=== PATIENT | male | born 1990 | race Asian ===

== ENCOUNTER 2018-11-02 09:35 | Inpatient (IN) | payer OTHER ==
[2018-11-02] MEDS ORDERED: NS 0.9% 1000 ML*IV.FLUID IV ONE (09:59)
[2018-11-02] MEDS ORDERED: Ondansetron INJ* 2 MG/ML VIAL IV ONE (10:02)
--- NOTE | 2018-11-02 10:10 | ED ---
HPI Diabetic - HPI Summary HPI Summary: 27-year-old male presents with abdominal pain since yesterday. He states has not been able to keep anything down. He is a type I diabetic. He states he does have a history of DKA. He states that he started developing chest pain shortness of breath today. He states that he has continued to vomit. His blood glucose was 497 per EMS. he states felt feverish. He has never had this before. He denies any headache. no sinus congestion. he denies any sore throat. no urinary symptoms. has not taken anything for his symptoms. no other symptoms. - History Of Current Complaint Chief Complaint: EDDiabeticProb Time Seen by Provider: 11/02/18 09:41 - Allergies/Home Medications Allergies/Adverse Reactions: Allergies Allergy/AdvReac Type Severity Reaction Status Date / Time No Known Allergies Allergy Verified 11/02/18 10:09 Home Medications: Home Medications Insulin GLARGINE(*) [Lantus(*)] 16 units SUBCUT QAM 11/02/18 [History Confirmed 11/02/18] Insulin Lispro [Humalog Kwikpen] 0 unit SUBCUT PC 11/02/18 [History Confirmed ] PMH/Surg Hx/FS Hx/Imm Hx Endocrine/Hematology History: Reports: Hx Diabetes - type 1 Cardiovascular History: Denies: Hx Hypertension Infectious Disease History: No Infectious Disease History: Denies: Traveled Outside the [place] in Last 30 Days - Family History Known Family History: Negative: Diabetes - Social History Alcohol Use: Occasionally Substance Use Type: Reports: None Review of Systems Negative: Fever Positive: Shortness Of Breath, Cough Positive: Abdominal Pain, Vomiting, Nausea All Other Systems Reviewed And Are Negative: Yes Physical Exam Triage Information Reviewed: Yes Vital Signs On Initial Exam: Initial Vitals Resp 12 11/02/18 09:48 Vital Signs Reviewed: Yes Appearance: Positive: Ill-Appearing Skin: Positive: Warm, Dry Head/Face: Positive: Normal Head/Face Inspection Eyes: Positive: Normal, EOMI, RADHA, Conjunctiva Clear ENT: Positive: Pharyngeal erythema, TMs normal Respiratory/Lung Sounds: Positive: Clear to Auscultation, Breath Sounds Present Cardiovascular: Positive: Tachycardia Abdomen Description: Positive: Nontender, Soft Bowel Sounds: Positive: Present Musculoskeletal: Positive: Normal Neurological: Positive: Normal Psychiatric: Positive: Normal Diagnostics - Vital Signs Vital Signs Temp Pulse Resp BP Pulse Ox 11/02/18 10:00 136 19 99 11/02/18 09:49 98.4 F 132 40 148/89 98 11/02/18 09:48 12 - Laboratory Result Diagrams: 11/02/18 10:35 11/02/18 11:44 Lab Statement: Any lab studies that have been ordered have been reviewed, and results considered in the medical decision making process. - Radiology chest Radiology Interpretation Completed By: Radiologist Summary of Radiographic Findings: nad - EKG No standard instances Cardiac Rate: Tachycardia EKG Rhythm: Sinus Tachycardia Summary of EKG Findings: sinus tachycardia Diabetic Course/Dx - Course Course Of Treatment: 27-year-old male presents with nausea and vomiting for the past day. He states he felt feverish and chills. States over the bowel pain yesterday but that has gotten better. He denies chest pain or shortness breath. He denies any sore throat. He states he does have a history of DKA and is a type I diabetic. On first exam patient's respiratory rate is increased and has increased breathing. The patient is diaphoretic and tachycardic. Gave fluids. while waiting for labs ABG resulted in shows that patient is in DKA. Dr. Yadav who agrees to admit. - Diagnoses Differential Dx: Diabetic Ketoacidosis, Pneumonia, Sepsis Provider Diagnoses: DKA (diabetic ketoacidoses), Nausea and vomiting - Critical Care Time Critical Care Time: 30-74 min - 40mins Discharge - Sign-Out/Discharge Documenting (check all that apply): Patient Departure - Discharge Plan Condition: Guarded Disposition: ADMITTED TO [facility] - Billing Disposition and Condition Condition: GUARDED Disposition: Admitted to [facility]
[2018-11-02 10:46] LABS: Hematocrit 55 % (42-52); Hemoglobin 17.2 g/dl (14.0-18.0); Mean Corpuscular HGB Conc 32 g/dl (31-36); Mean Corpuscular Hemoglobin 30 pg (27-31); Mean Corpuscular Volume 95 fL (80-94); Mean Platelet Volume 8.2 fL (7.4-10.4); Platelet Count 281 10^3/ul (150-450); Red Blood Count 5.77 10^6/ul (4.00-5.40); Red Cell Distribution Width 15 % (10.5-15); White Blood Count 18.4 10^3/ul (3.5-10.8)
[2018-11-02 11:07] LABS: ALT 15 U/L (7-52); Albumin 4.4 g/dL (3.2-5.2); Albumin/Globulin Ratio 1.4 (1-3); Alkaline Phosphatase 121 U/L (34-104); BUN/Creatinine Ratio 14.7 (8-20); Blood Urea Nitrogen 19 mg/dL (6-24); C Reactive Protein 2.56 mg/L (<8.01); Calcium 8.9 mg/dL (8.6-10.3); Chloride 102 mmol/L (101-111); Creatine Kinase 74 U/L (10-223); EGFR Non-African American 67.3 (>60); Globulin 3.2 g/dL (2-4); Magnesium 1.7 mg/dL (1.9-2.7); Sodium 135 mmol/L (135-145); Total Protein 7.6 g/dL (6.4-8.9)
[2018-11-02 11:11] LABS: ABS Basophils 0.1 10^3/ul (0-0.2); ABS Eosinophils 0 10^3/ul (0-0.6); ABS Lymphocytes 1.7 10^3/ul (1.0-4.8); ABS Monocytes 0.8 10^3/ul (0-0.8); ABS Neutrophils 15.9 10^3/ul (1.5-7.7); ABS Nucleated RBC 0 10^3/ul; Eosinophil % 0.1 %; Lymphocyte % 9.1 %; Nucleated Red Blood Cells % 0
[2018-11-02 11:14] LABS: CO2 Carbon Dioxide < 7 mmol/L (22-32); Glucose 521 mg/dL (70-100)
--- NOTE | 2018-11-02 11:25 | HP ---
H&P (Free Text) History and Physical: [facility] History and Physical CC: Nausea and vomiting HPI: 27M with DM1 presents with nausea and vomiting. The patient states that over the past several days he has had a sore throat. He denies any fevers. During lunch yesterday he began to get nauseated and vomited. He denied any abdominal pain. He has been urinating more frequently and is very thirsty. He came to the ER and was found to be markedly acidotic. He had a bicarb of < 7 and his arterial pH is 7.02. The patient was given iv fluids and started on an insulin gtt. ROS - as per HPI PMHx - DM1 PSHx - denies All - nkda FamHx - denies SocHx - smoker, denies drugs or alcohol PE Vital Signs: Temp Pulse Resp BP Pulse Ox 98.4 F 131 45 139/88 99 11/02/18 09:49 11/02/18 11:00 11/02/18 11:00 11/02/18 10:19 11/02/18 11:00 Gen - Acutely ill heent - ncat, eomi, perrl neck - no jvd cv - s1/s2 tachy lungs -cta, no wheeze abd - soft, nt ext - no cce neuro - non-focal Labs Laboratory Results - last 24 hr 11/02/18 11/02/18 11/02/18 10:20 10:35 10:35 WBC 18.4 H RBC 5.77 H Hgb 17.2 Hct 55 H MCV 95 H MCH 30 MCHC 32 RDW 15 Plt Count 281 MPV 8.2 Neut % (Auto) 86.3 Lymph % (Auto) 9.1 [place] % (Auto) 4.2 Eos % (Auto) 0.1 Baso % (Auto) 0.3 Absolute Neuts (auto) 15.9 H Absolute Lymphs (auto) 1.7 Absolute Monos (auto) 0.8 Absolute Eos (auto) 0 Absolute Basos (auto) 0.1 Absolute Nucleated RBC 0 Nucleated RBC % 0 D-Dimer, Quantitative ABG pH 7.02 L* ABG pCO2 < 20 L ABG pO2 121 H ABG HCO3 4.7 L* ABG O2 Saturation 98.7 H ABG Base Excess -25.9 L Sodium 135 Potassium TNP Chloride 102 Carbon Dioxide < 7 L* Anion Gap Not Reportable BUN 19 Creatinine 1.29 H Est GFR ( Amer) 81.5 Est GFR (Non-Af Amer) 67.3 BUN/Creatinine Ratio 14.7 Glucose 521 H* Lactic Acid Calcium 8.9 Magnesium 1.7 L Total Bilirubin 0.40 AST TNP ALT 15 Alkaline Phosphatase 121 H Total Creatine Kinase 74 Troponin I 0.00 C-Reactive Protein 2.56 Total Protein 7.6 Albumin 4.4 Globulin 3.2 Albumin/Globulin Ratio 1.4 Lipase < 10 L Monoscreen Influenza A (Rapid) Influenza B (Rapid) Group A Strep Rapid 11/02/18 11/02/18 11/02/18 10:35 10:35 10:35 WBC RBC Hgb Hct MCV MCH MCHC RDW Plt Count MPV Neut % (Auto) Lymph % (Auto) [place] % (Auto) Eos % (Auto) Baso % (Auto) Absolute Neuts (auto) Absolute Lymphs (auto) Absolute Monos (auto) Absolute Eos (auto) Absolute Basos (auto) Absolute Nucleated RBC Nucleated RBC % D-Dimer, Quantitative < 200 ABG pH ABG pCO2 ABG pO2 ABG HCO3 ABG O2 Saturation ABG Base Excess Sodium Potassium Chloride Carbon Dioxide Anion Gap BUN Creatinine Est GFR ( Amer) Est GFR (Non-Af Amer) BUN/Creatinine Ratio Glucose Lactic Acid 2.6 H* Calcium Magnesium Total Bilirubin AST ALT Alkaline Phosphatase Total Creatine Kinase Troponin I C-Reactive Protein Total Protein Albumin Globulin Albumin/Globulin Ratio Lipase Monoscreen Negative Influenza A (Rapid) Influenza B (Rapid) Group A Strep Rapid 11/02/18 11/02/18 10:51 10:52 WBC RBC Hgb Hct MCV MCH MCHC RDW Plt Count MPV Neut % (Auto) Lymph % (Auto) [place] % (Auto) Eos % (Auto) Baso % (Auto) Absolute Neuts (auto) Absolute Lymphs (auto) Absolute Monos (auto) Absolute Eos (auto) Absolute Basos (auto) Absolute Nucleated RBC Nucleated RBC % D-Dimer, Quantitative ABG pH ABG pCO2 ABG pO2 ABG HCO3 ABG O2 Saturation ABG Base Excess Sodium Potassium Chloride Carbon Dioxide Anion Gap BUN Creatinine Est GFR ( Amer) Est GFR (Non-Af Amer) BUN/Creatinine Ratio Glucose Lactic Acid Calcium Magnesium Total Bilirubin AST ALT Alkaline Phosphatase Total Creatine Kinase Troponin I C-Reactive Protein Total Protein Albumin Globulin Albumin/Globulin Ratio Lipase Monoscreen Influenza A (Rapid) Negative Influenza B (Rapid) Negative Group A Strep Rapid Negative Imaging CXR 11/02 IMPRESSION: NO ACTIVE CARDIOPULMONARY DISEASE. Impression 27M with DM1 presents with DKA precipitated by viral URI Plan DKA - aggressive iv hydration - serial bmp - fs q1h - replete electrolytes - npo - insulin gtt - check a1c - gi/dvt ppx - full code Admit to ICU Critical Care Time: 50 mins
[2018-11-02] MEDS ORDERED: Morphine VIAL* 4 MG/ML VIAL (1 ml vial) IV PRN (11:42)
[2018-11-02] MEDS ORDERED: Ondansetron INJ* 2 MG/ML VIAL IV PRN (11:42)
[2018-11-02 11:45] LABS: Urine Appearance Clear; Urine Bacteria Absent (Absent); Urine Bilirubin Negative (Negative); Urine Blood 2+ (Negative); Urine Color Straw; Urine Glucose 3+(>=500 mg/dL) (Negative); Urine Ketones 2+ (Negative); Urine Nitrite Negative (Negative); Urine Protein 1+(30 mg/dL) (Negative); Urine Red Blood Cell Trace(0-2/hpf) (Absent); Urine Specific Gravity 1.024 (1.010-1.030); Urine Urobilinogen Negative (Negative); Urine White Blood Cell Absent (Absent)
[2018-11-02] MEDS ORDERED: Lactated Ringers 1000 ML Bag* 1,000 ML IV SCH ×2 (12:00→13:00)
[2018-11-02] MEDS ORDERED: Insulin IVPB 100 units/100 ml 100 UNITS/100 ML UNIT IVPB SCH (12:00)
[2018-11-02] MEDS: Enoxaparin(*) 40 MG/0.4 ML SYR SUBCUT SCH (12:20)
[2018-11-02] MEDS: Lactated Ringers 1000 ML Bag* 2,000 ML IV SCH ×2 (12:20→13:07)
[2018-11-02 15:05] LABS: BUN/Creatinine Ratio 14.4 (8-20); Blood Urea Nitrogen 16 mg/dL (6-24); Calcium 8.7 mg/dL (8.6-10.3); Chloride 106 mmol/L (101-111); EGFR Non-African American 80.1 (>60); Glucose 286 mg/dL (70-100); Magnesium 1.6 mg/dL (1.9-2.7); Sodium 133 mmol/L (135-145)
[2018-11-02 15:10] LABS: CO2 Carbon Dioxide < 7 mmol/L (22-32)
[2018-11-02 15:49] LABS: Potassium 5.2 mmol/L (3.5-5.0)
[2018-11-02] MEDS ORDERED: Magnesium Sulfate IV* 3 GM in NS 0.9% 100 ML* 100 ML IVPB ONE (16:00)
[2018-11-02] MEDS ORDERED: D5LR 1000 ML BAG* 1,000 ML IV SCH (16:00)
[2018-11-02 19:18] LABS: Chloride 107 mmol/L (101-111); Sodium 135 mmol/L (135-145)
[2018-11-02 19:21] LABS: CO2 Carbon Dioxide < 7 mmol/L (22-32)
[2018-11-02 20:27] LABS: BUN/Creatinine Ratio 11.6 (8-20); Calcium 8.5 mg/dL (8.6-10.3); EGFR Non-African American 95.8 (>60); Magnesium 2.2 mg/dL (1.9-2.7); Phosphorus 1.9 mg/dL (2.5-5.0); Potassium 4.5 mmol/L (3.5-5.0)
[2018-11-02] MEDS ORDERED: Sodium Phosphate INJ* 15 MMOLE in NS 0.9% 250 ML* 250 ML IVPB ONE (22:00)
[2018-11-03 01:59] LABS: ABS Basophils 0.1 10^3/ul (0-0.2); ABS Eosinophils 0 10^3/ul (0-0.6); ABS Lymphocytes 2.1 10^3/ul (1.0-4.8); ABS Monocytes 1.2 10^3/ul (0-0.8); ABS Neutrophils 10.2 10^3/ul (1.5-7.7); ABS Nucleated RBC 0 10^3/ul; Eosinophil % 0.1 %; Hematocrit 44 % (42-52); Hemoglobin 14.8 g/dl (14.0-18.0); Lymphocyte % 15.6 %; Mean Corpuscular HGB Conc 33 g/dl (31-36); Mean Corpuscular Hemoglobin 30 pg (27-31); Mean Corpuscular Volume 89 fL (80-94); Mean Platelet Volume 7.4 fL (7.4-10.4); Nucleated Red Blood Cells % 0; Platelet Count 216 10^3/ul (150-450); Red Blood Count 4.98 10^6/ul (4.00-5.40); Red Cell Distribution Width 14 % (10.5-15); White Blood Count 13.6 10^3/ul (3.5-10.8)
[2018-11-03 02:12] LABS: BUN/Creatinine Ratio 9.2 (8-20); Calcium 8.6 mg/dL (8.6-10.3); EGFR Non-African American 92.5 (>60); Magnesium 1.8 mg/dL (1.9-2.7); Phosphorus 1.9 mg/dL (2.5-5.0); Potassium 3.8 mmol/L (3.5-5.0)
[2018-11-03] MEDS ORDERED: Dextrose 50% Syringe 50 ML* 25 GM/50 ML SYRINGE IV PUSH PRN (02:28)
[2018-11-03] MEDS: Insulin GLARGINE(*) 1 UNITS UNIT SUBCUT SCH (02:41)
[2018-11-03] MEDS ORDERED: Magnesium Sulfate 1 GM IV* 1 GM/100 ML BAG IV ONE (03:16)
--- NOTE | 2018-11-03 08:20 | PN ---
Date of Service: 11/03/18 Critical Care Services: 27M with DM1 presents with DKA precipitated by viral URI 11/03: AG closed. Off insulin gtt. Given long acting insulin. Vital Signs: Temp Pulse Resp BP SpO2 FiO2 98.8 F 78 20 105/62 100 11/03/18 07:40 11/03/18 06:01 11/03/18 06:01 11/03/18 06:00 11/03/18 06:01 Physical Exam: Gen - nad heent - ncat, eomi, perrl neck - no jvd cv - s1/s2, no murmur lungs -cta, no wheeze abd - soft, nt ext - no cce neuro - non-focal Fluid Balance (Past 24 Hours): I= O= Net Intake & Output 11/01/18 11/02/18 11/03/18 11/04/18 06:59 06:59 06:59 06:59 Intake Total 6420.2 Output Total 2650 Balance 3770.2 Weight 82.559 kg Intake: IV Fluids 5806 D5W LR 1788 LR 1998 NS (0.9%) 20 IVPB 40 Sodium phosphate 40 Medicated IV 174.2 GEN - Magnesium 110 Insulin 64.2 Oral 400 Output: Urine 2650 Labs: Laboratory Results - last 24 hr 11/02/18 11/02/18 11/02/18 10:20 10:35 10:35 WBC 18.4 H RBC 5.77 H Hgb 17.2 Hct 55 H MCV 95 H MCH 30 MCHC 32 RDW 15 Plt Count 281 MPV 8.2 Neut % (Auto) 86.3 Lymph % (Auto) 9.1 [place] % (Auto) 4.2 Eos % (Auto) 0.1 Baso % (Auto) 0.3 Absolute Neuts (auto) 15.9 H Absolute Lymphs (auto) 1.7 Absolute Monos (auto) 0.8 Absolute Eos (auto) 0 Absolute Basos (auto) 0.1 Absolute Nucleated RBC 0 Nucleated RBC % 0 D-Dimer, Quantitative ABG pH 7.02 L* ABG pCO2 < 20 L ABG pO2 121 H ABG HCO3 4.7 L* ABG O2 Saturation 98.7 H ABG Base Excess -25.9 L Sodium 135 Potassium TNP Chloride 102 Carbon Dioxide < 7 L* Anion Gap Not Reportable BUN 19 Creatinine 1.29 H Est GFR ( Amer) 81.5 Est GFR (Non-Af Amer) 67.3 BUN/Creatinine Ratio 14.7 Glucose 521 H* POC Glucose (mg/dL) Hemoglobin A1c Lactic Acid Calcium 8.9 Phosphorus Magnesium 1.7 L Total Bilirubin 0.40 AST TNP ALT 15 Alkaline Phosphatase 121 H Total Creatine Kinase 74 Troponin I 0.00 C-Reactive Protein 2.56 Total Protein 7.6 Albumin 4.4 Globulin 3.2 Albumin/Globulin Ratio 1.4 Lipase < 10 L Urine Color Urine Appearance Urine pH Ur Specific [place] Urine Protein Urine Ketones Urine Blood Urine Nitrate Urine Bilirubin Urine Urobilinogen Ur Leukocyte Esterase Urine WBC (Auto) Urine RBC (Auto) Urine Bacteria Urine Glucose Monoscreen Influenza A (Rapid) Influenza B (Rapid) Group A Strep Rapid 11/02/18 11/02/18 11/02/18 10:35 10:35 10:35 WBC RBC Hgb Hct MCV MCH MCHC RDW Plt Count MPV Neut % (Auto) Lymph % (Auto) [place] % (Auto) Eos % (Auto) Baso % (Auto) Absolute Neuts (auto) Absolute Lymphs (auto) Absolute Monos (auto) Absolute Eos (auto) Absolute Basos (auto) Absolute Nucleated RBC Nucleated RBC % D-Dimer, Quantitative < 200 ABG pH ABG pCO2 ABG pO2 ABG HCO3 ABG O2 Saturation ABG Base Excess Sodium Potassium Chloride Carbon Dioxide Anion Gap BUN Creatinine Est GFR ( Amer) Est GFR (Non-Af Amer) BUN/Creatinine Ratio Glucose POC Glucose (mg/dL) Hemoglobin A1c Lactic Acid 2.6 H* Calcium Phosphorus Magnesium Total Bilirubin AST ALT Alkaline Phosphatase Total Creatine Kinase Troponin I C-Reactive Protein Total Protein Albumin Globulin Albumin/Globulin Ratio Lipase Urine Color Urine Appearance Urine pH Ur Specific [place] Urine Protein Urine Ketones Urine Blood Urine Nitrate Urine Bilirubin Urine Urobilinogen Ur Leukocyte Esterase Urine WBC (Auto) Urine RBC (Auto) Urine Bacteria Urine Glucose Monoscreen Negative Influenza A (Rapid) Influenza B (Rapid) Group A Strep Rapid 11/02/18 11/02/18 11/02/18 10:51 10:52 11:24 WBC RBC Hgb Hct MCV MCH MCHC RDW Plt Count MPV Neut % (Auto) Lymph % (Auto) [place] % (Auto) Eos % (Auto) Baso % (Auto) Absolute Neuts (auto) Absolute Lymphs (auto) Absolute Monos (auto) Absolute Eos (auto) Absolute Basos (auto) Absolute Nucleated RBC Nucleated RBC % D-Dimer, Quantitative ABG pH ABG pCO2 ABG pO2 ABG HCO3 ABG O2 Saturation ABG Base Excess Sodium Potassium Chloride Carbon Dioxide Anion Gap BUN Creatinine Est GFR ( Amer) Est GFR (Non-Af Amer) BUN/Creatinine Ratio Glucose POC Glucose (mg/dL) > 444 H* Hemoglobin A1c Lactic Acid Calcium Phosphorus Magnesium Total Bilirubin AST ALT Alkaline Phosphatase Total Creatine Kinase Troponin I C-Reactive Protein Total Protein Albumin Globulin Albumin/Globulin Ratio Lipase Urine Color Urine Appearance Urine pH Ur Specific [place] Urine Protein Urine Ketones Urine Blood Urine Nitrate Urine Bilirubin Urine Urobilinogen Ur Leukocyte Esterase Urine WBC (Auto) Urine RBC (Auto) Urine Bacteria Urine Glucose Monoscreen Influenza A (Rapid) Negative Influenza B (Rapid) Negative Group A Strep Rapid Negative 11/02/18 11/02/18 11/02/18 11:30 11:44 12:08 WBC RBC Hgb Hct MCV MCH MCHC RDW Plt Count MPV Neut % (Auto) Lymph % (Auto) [place] % (Auto) Eos % (Auto) Baso % (Auto) Absolute Neuts (auto) Absolute Lymphs (auto) Absolute Monos (auto) Absolute Eos (auto) Absolute Basos (auto) Absolute Nucleated RBC Nucleated RBC % D-Dimer, Quantitative ABG pH ABG pCO2 ABG pO2 ABG HCO3 ABG O2 Saturation ABG Base Excess Sodium Potassium TNP Chloride Carbon Dioxide Anion Gap BUN Creatinine Est GFR ( Amer) Est GFR (Non-Af Amer) BUN/Creatinine Ratio Glucose POC Glucose (mg/dL) Hemoglobin A1c Lactic Acid Calcium Phosphorus 4.9 Magnesium Total Bilirubin AST TNP ALT Alkaline Phosphatase Total Creatine Kinase Troponin I C-Reactive Protein Total Protein Albumin Globulin Albumin/Globulin Ratio Lipase Urine Color Straw Urine Appearance Clear Urine pH 5.0 Ur Specific [place] 1.024 Urine Protein 1+(30 mg/dl) A Urine Ketones 2+ A Urine Blood 2+ A Urine Nitrate Negative Urine Bilirubin Negative Urine Urobilinogen Negative Ur Leukocyte Esterase Negative Urine WBC (Auto) Absent Urine RBC (Auto) Trace(0-2/hpf) Urine Bacteria Absent Urine Glucose 3+(>=500 mg/dl) A Monoscreen Influenza A (Rapid) Influenza B (Rapid) Group A Strep Rapid 11/02/18 11/02/18 11/02/18 12:18 13:03 14:10 WBC RBC Hgb Hct MCV MCH MCHC RDW Plt Count MPV Neut % (Auto) Lymph % (Auto) [place] % (Auto) Eos % (Auto) Baso % (Auto) Absolute Neuts (auto) Absolute Lymphs (auto) Absolute Monos (auto) Absolute Eos (auto) Absolute Basos (auto) Absolute Nucleated RBC Nucleated RBC % D-Dimer, Quantitative ABG pH ABG pCO2 ABG pO2 ABG HCO3 ABG O2 Saturation ABG Base Excess Sodium Potassium Chloride Carbon Dioxide Anion Gap BUN Creatinine Est GFR ( Amer) Est GFR (Non-Af Amer) BUN/Creatinine Ratio Glucose POC Glucose (mg/dL) 345 H 367 H 309 H Hemoglobin A1c Lactic Acid Calcium Phosphorus Magnesium Total Bilirubin AST ALT Alkaline Phosphatase Total Creatine Kinase Troponin I C-Reactive Protein Total Protein Albumin Globulin Albumin/Globulin Ratio Lipase Urine Color Urine Appearance Urine pH Ur Specific [place] Urine Protein Urine Ketones Urine Blood Urine Nitrate Urine Bilirubin Urine Urobilinogen Ur Leukocyte Esterase Urine WBC (Auto) Urine RBC (Auto) Urine Bacteria Urine Glucose Monoscreen Influenza A (Rapid) Influenza B (Rapid) Group A Strep Rapid 11/02/18 11/02/18 11/02/18 14:18 15:10 15:25 WBC RBC Hgb Hct MCV MCH MCHC RDW Plt Count MPV Neut % (Auto) Lymph % (Auto) [place] % (Auto) Eos % (Auto) Baso % (Auto) Absolute Neuts (auto) Absolute Lymphs (auto) Absolute Monos (auto) Absolute Eos (auto) Absolute Basos (auto) Absolute Nucleated RBC Nucleated RBC % D-Dimer, Quantitative ABG pH ABG pCO2 ABG pO2 ABG HCO3 ABG O2 Saturation ABG Base Excess Sodium 133 L Potassium TNP Chloride 106 Carbon Dioxide < 7 L* Anion Gap Not Reportable BUN 16 Creatinine 1.11 Est GFR ( Amer) 96.9 Est GFR (Non-Af Amer) 80.1 BUN/Creatinine Ratio 14.4 Glucose 286 H POC Glucose (mg/dL) 225 H Hemoglobin A1c 10.8 H Lactic Acid Calcium 8.7 Phosphorus Magnesium 1.6 L Total Bilirubin AST ALT Alkaline Phosphatase Total Creatine Kinase Troponin I C-Reactive Protein Total Protein Albumin Globulin Albumin/Globulin Ratio Lipase Urine Color Urine Appearance Urine pH Ur Specific [place] Urine Protein Urine Ketones Urine Blood Urine Nitrate Urine Bilirubin Urine Urobilinogen Ur Leukocyte Esterase Urine WBC (Auto) Urine RBC (Auto) Urine Bacteria Urine Glucose Monoscreen Influenza A (Rapid) Influenza B (Rapid) Group A Strep Rapid 11/02/18 11/02/18 11/02/18 15:25 15:56 17:12 WBC RBC Hgb Hct MCV MCH MCHC RDW Plt Count MPV Neut % (Auto) Lymph % (Auto) [place] % (Auto) Eos % (Auto) Baso % (Auto) Absolute Neuts (auto) Absolute Lymphs (auto) Absolute Monos (auto) Absolute Eos (auto) Absolute Basos (auto) Absolute Nucleated RBC Nucleated RBC % D-Dimer, Quantitative ABG pH ABG pCO2 ABG pO2 ABG HCO3 ABG O2 Saturation ABG Base Excess Sodium 135 Potassium 5.2 H Chloride 107 Carbon Dioxide < 7 L* Anion Gap Not Reportable BUN Creatinine Est GFR ( Amer) Est GFR (Non-Af Amer) BUN/Creatinine Ratio Glucose POC Glucose (mg/dL) 196 H 206 H Hemoglobin A1c Lactic Acid Calcium Phosphorus Magnesium Total Bilirubin AST ALT Alkaline Phosphatase Total Creatine Kinase Troponin I C-Reactive Protein Total Protein Albumin Globulin Albumin/Globulin Ratio Lipase Urine Color Urine Appearance Urine pH Ur Specific [place] Urine Protein Urine Ketones Urine Blood Urine Nitrate Urine Bilirubin Urine Urobilinogen Ur Leukocyte Esterase Urine WBC (Auto) Urine RBC (Auto) Urine Bacteria Urine Glucose Monoscreen Influenza A (Rapid) Influenza B (Rapid) Group A Strep Rapid 11/02/18 11/02/18 11/02/18 17:58 19:01 20:00 WBC RBC Hgb Hct MCV MCH MCHC RDW Plt Count MPV Neut % (Auto) Lymph % (Auto) [place] % (Auto) Eos % (Auto) Baso % (Auto) Absolute Neuts (auto) Absolute Lymphs (auto) Absolute Monos (auto) Absolute Eos (auto) Absolute Basos (auto) Absolute Nucleated RBC Nucleated RBC % D-Dimer, Quantitative ABG pH ABG pCO2 ABG pO2 ABG HCO3 ABG O2 Saturation ABG Base Excess Sodium 132 L Potassium 4.5 Chloride 109 Carbon Dioxide 10 L* Anion Gap 13 H BUN 11 Creatinine 0.95 Est GFR ( Amer) 116.0 Est GFR (Non-Af Amer) 95.8 BUN/Creatinine Ratio 11.6 Glucose 212 H POC Glucose (mg/dL) 206 H 206 H Hemoglobin A1c Lactic Acid Calcium 8.5 L Phosphorus 1.9 L Magnesium 2.2 Total Bilirubin AST ALT Alkaline Phosphatase Total Creatine Kinase Troponin I C-Reactive Protein Total Protein Albumin Globulin Albumin/Globulin Ratio Lipase Urine Color Urine Appearance Urine pH Ur Specific [place] Urine Protein Urine Ketones Urine Blood Urine Nitrate Urine Bilirubin Urine Urobilinogen Ur Leukocyte Esterase Urine WBC (Auto) Urine RBC (Auto) Urine Bacteria Urine Glucose Monoscreen Influenza A (Rapid) Influenza B (Rapid) Group A Strep Rapid 11/02/18 11/02/18 11/02/18 20:02 21:02 21:57 WBC RBC Hgb Hct MCV MCH MCHC RDW Plt Count MPV Neut % (Auto) Lymph % (Auto) [place] % (Auto) Eos % (Auto) Baso % (Auto) Absolute Neuts (auto) Absolute Lymphs (auto) Absolute Monos (auto) Absolute Eos (auto) Absolute Basos (auto) Absolute Nucleated RBC Nucleated RBC % D-Dimer, Quantitative ABG pH ABG pCO2 ABG pO2 ABG HCO3 ABG O2 Saturation ABG Base Excess Sodium Potassium Chloride Carbon Dioxide Anion Gap BUN Creatinine Est GFR ( Amer) Est GFR (Non-Af Amer) BUN/Creatinine Ratio Glucose POC Glucose (mg/dL) 192 H 194 H 192 H Hemoglobin A1c Lactic Acid Calcium Phosphorus Magnesium Total Bilirubin AST ALT Alkaline Phosphatase Total Creatine Kinase Troponin I C-Reactive Protein Total Protein Albumin Globulin Albumin/Globulin Ratio Lipase Urine Color Urine Appearance Urine pH Ur Specific [place] Urine Protein Urine Ketones Urine Blood Urine Nitrate Urine Bilirubin Urine Urobilinogen Ur Leukocyte Esterase Urine WBC (Auto) Urine RBC (Auto) Urine Bacteria Urine Glucose Monoscreen Influenza A (Rapid) Influenza B (Rapid) Group A Strep Rapid 11/02/18 11/02/18 11/03/18 22:55 23:52 01:04 WBC RBC Hgb Hct MCV MCH MCHC RDW Plt Count MPV Neut % (Auto) Lymph % (Auto) [place] % (Auto) Eos % (Auto) Baso % (Auto) Absolute Neuts (auto) Absolute Lymphs (auto) Absolute Monos (auto) Absolute Eos (auto) Absolute Basos (auto) Absolute Nucleated RBC Nucleated RBC % D-Dimer, Quantitative ABG pH ABG pCO2 ABG pO2 ABG HCO3 ABG O2 Saturation ABG Base Excess Sodium Potassium Chloride Carbon Dioxide Anion Gap BUN Creatinine Est GFR ( Amer) Est GFR (Non-Af Amer) BUN/Creatinine Ratio Glucose POC Glucose (mg/dL) 190 H 188 H 178 H Hemoglobin A1c Lactic Acid Calcium Phosphorus Magnesium Total Bilirubin AST ALT Alkaline Phosphatase Total Creatine Kinase Troponin I C-Reactive Protein Total Protein Albumin Globulin Albumin/Globulin Ratio Lipase Urine Color Urine Appearance Urine pH Ur Specific [place] Urine Protein Urine Ketones Urine Blood Urine Nitrate Urine Bilirubin Urine Urobilinogen Ur Leukocyte Esterase Urine WBC (Auto) Urine RBC (Auto) Urine Bacteria Urine Glucose Monoscreen Influenza A (Rapid) Influenza B (Rapid) Group A Strep Rapid 11/03/18 11/03/18 11/03/18 01:47 01:47 02:59 WBC 13.6 H RBC 4.98 Hgb 14.8 Hct 44 MCV 89 MCH 30 MCHC 33 RDW 14 Plt Count 216 MPV 7.4 Neut % (Auto) 75.1 Lymph % (Auto) 15.6 [place] % (Auto) 8.6 Eos % (Auto) 0.1 Baso % (Auto) 0.6 Absolute Neuts (auto) 10.2 H Absolute Lymphs (auto) 2.1 Absolute Monos (auto) 1.2 H Absolute Eos (auto) 0 Absolute Basos (auto) 0.1 Absolute Nucleated RBC 0 Nucleated RBC % 0 D-Dimer, Quantitative ABG pH ABG pCO2 ABG pO2 ABG HCO3 ABG O2 Saturation ABG Base Excess Sodium 135 Potassium 3.8 Chloride 110 Carbon Dioxide 17 L Anion Gap 8 BUN 9 Creatinine 0.98 Est GFR ( Amer) 111.9 Est GFR (Non-Af Amer) 92.5 BUN/Creatinine Ratio 9.2 Glucose 186 H POC Glucose (mg/dL) 161 H Hemoglobin A1c Lactic Acid Calcium 8.6 Phosphorus 1.9 L Magnesium 1.8 L Total Bilirubin AST ALT Alkaline Phosphatase Total Creatine Kinase Troponin I C-Reactive Protein Total Protein Albumin Globulin Albumin/Globulin Ratio Lipase Urine Color Urine Appearance Urine pH Ur Specific [place] Urine Protein Urine Ketones Urine Blood Urine Nitrate Urine Bilirubin Urine Urobilinogen Ur Leukocyte Esterase Urine WBC (Auto) Urine RBC (Auto) Urine Bacteria Urine Glucose Monoscreen Influenza A (Rapid) Influenza B (Rapid) Group A Strep Rapid 11/03/18 11/03/18 04:09 05:09 WBC RBC Hgb Hct MCV MCH MCHC RDW Plt Count MPV Neut % (Auto) Lymph % (Auto) [place] % (Auto) Eos % (Auto) Baso % (Auto) Absolute Neuts (auto) Absolute Lymphs (auto) Absolute Monos (auto) Absolute Eos (auto) Absolute Basos (auto) Absolute Nucleated RBC Nucleated RBC % D-Dimer, Quantitative ABG pH ABG pCO2 ABG pO2 ABG HCO3 ABG O2 Saturation ABG Base Excess Sodium Potassium Chloride Carbon Dioxide Anion Gap BUN Creatinine Est GFR ( Amer) Est GFR (Non-Af Amer) BUN/Creatinine Ratio Glucose POC Glucose (mg/dL) 135 H 157 H Hemoglobin A1c Lactic Acid Calcium Phosphorus Magnesium Total Bilirubin AST ALT Alkaline Phosphatase Total Creatine Kinase Troponin I C-Reactive Protein Total Protein Albumin Globulin Albumin/Globulin Ratio Lipase Urine Color Urine Appearance Urine pH Ur Specific [place] Urine Protein Urine Ketones Urine Blood Urine Nitrate Urine Bilirubin Urine Urobilinogen Ur Leukocyte Esterase Urine WBC (Auto) Urine RBC (Auto) Urine Bacteria Urine Glucose Monoscreen Influenza A (Rapid) Influenza B (Rapid) Group A Strep Rapid Studies: CXR 11/02 IMPRESSION: NO ACTIVE CARDIOPULMONARY DISEASE. Impression: 27M with DM1 presents with DKA precipitated by viral URI Plan: DKA - resolving - ag closed - given home dose of lantus - possible discharge vs transfer to floor - gi/dvt ppx - full code
[2018-11-03 09:29] LABS: BUN/Creatinine Ratio 9.9 (8-20); Calcium 8.8 mg/dL (8.6-10.3); EGFR Non-African American 100.7 (>60); Magnesium 1.8 mg/dL (1.9-2.7); Phosphorus 1.8 mg/dL (2.5-5.0); Potassium 3.9 mmol/L (3.5-5.0)
[2018-11-03] MEDS ORDERED: Magnesium Sulfate 2 GM IV* 2 GM/50 ML BAG IVPB ONE ×3 (09:40→22:01)
[2018-11-03] MEDS ORDERED: Sodium Phosphate INJ* 15 MMOLE in NS 0.9% 250 ML* 250 ML IVPB ONE ×2 (09:40→22:01)
[2018-11-03] MEDS: Insulin LISPRO* 1 UNITS UNIT SUBCUT SCH ×6 (09:54→20:55)
[2018-11-03] MEDS ORDERED: Lactated Ringers 1000 ML Bag* 1,000 ML IV SCH (10:00)
[2018-11-03] MEDS ORDERED: Al Hydrox/Mg Hydrox/Simet LIQ* 30 ML UDC PO PRN (10:29)
[2018-11-03] MEDS: Benzocaine/Menthol LOZ* 1 LOZENGE PO PRN ×2 (10:32→18:51)
[2018-11-03] MEDS: Famotidine TAB* 20 MG PO SCH ×2 (10:44→20:55)
[2018-11-03] MEDS: Enoxaparin(*) 40 MG/0.4 ML SYR SUBCUT SCH (14:32)
[2018-11-03 15:57] LABS: BUN/Creatinine Ratio 11.9 (8-20); Calcium 8.4 mg/dL (8.6-10.3); EGFR Non-African American 110.5 (>60); Magnesium 1.8 mg/dL (1.9-2.7); Phosphorus 1.8 mg/dL (2.5-5.0); Potassium 3.9 mmol/L (3.5-5.0)
[2018-11-03] MEDS ORDERED: Insulin LISPRO* 1 UNITS UNIT SUBCUT ONE (16:10)
[2018-11-03] MEDS: Lactated Ringers 1000 ML Bag* 2,000 ML IV ONE ×2 (16:44→17:53)
[2018-11-03 21:54] LABS: Anion Gap 6 mmol/L (2-11); BUN/Creatinine Ratio 10.9 (8-20); Blood Urea Nitrogen 10 mg/dL (6-24); CO2 Carbon Dioxide 22 mmol/L (22-32); Calcium 8.4 mg/dL (8.6-10.3); Chloride 109 mmol/L (101-111); EGFR Non-African American 99.4 (>60); Glucose 212 mg/dL (70-100); Magnesium 1.7 mg/dL (1.9-2.7); Potassium 3.6 mmol/L (3.5-5.0); Sodium 137 mmol/L (135-145)
[2018-11-03 21:57] LABS: Phosphorus < 1.0 mg/dL (2.5-5.0)
[2018-11-03] MEDS: Potassium Acid Phosphate TAB* 500 MG PO SCH (22:35)
[2018-11-04] MEDS: Insulin GLARGINE(*) 1 UNITS UNIT SUBCUT SCH (03:35)
[2018-11-04 07:38] LABS: Albumin/Globulin Ratio 1.5 (1-3); BUN/Creatinine Ratio 12.7 (8-20); Calcium 8.4 mg/dL (8.6-10.3); EGFR Non-African American 134.1 (>60); Magnesium 1.6 mg/dL (1.9-2.7); Phosphorus 1.8 mg/dL (2.5-5.0); Potassium 3.4 mmol/L (3.5-5.0); Total Bilirubin 1.1 mg/dL (0.2-1.0)
[2018-11-04] MEDS: Insulin LISPRO* 1 UNITS UNIT SUBCUT SCH ×2 (09:29→09:30)
[2018-11-04] MEDS: Famotidine TAB* 20 MG PO SCH (09:30)
[2018-11-04] MEDS: Potassium Acid Phosphate TAB* 500 MG PO SCH (09:30)
[2018-11-04 11:15] VITALS: BP 120/71
--- NOTE | 2018-11-04 17:52 | PN ---
Progress Note - Progress Note Date of Service: 11/04/18 Note: Time spent on discharge, including exam of patient, discussion and diabetic teaching of pt, discussion with nurse, employee pharmancy, CM, review of EMR and preparation of discharge documents was 40 minutes.
--- NOTE | 2018-11-05 00:55 | DS ---
CC: Dr. Sinclair DISCHARGE SUMMARY: DATE OF ADMISSION: DATE OF DISCHARGE: 11/04/18 HISTORY OF PRESENT ILLNESS: This 27-year-old man presented after vomiting and abdominal pain. He ev idently had a viral URI, did not check his fingerstick blood sugars and went into DKA. He was treate d in the intensive care unit. He responded well to an insulin therapy and fluids. When I saw him on the day of discharge, he appeared to be in very good condition. He has had diabetes for about 3 years. He is followed by Dr. Sinclair. He had DKA at the time of diagnos is of his diabetes, but this is the only other episode since his diagnosis of DKA. Apparently, he was in transition between apartments and did not have his glucometer with him. I am n ot sure if he had short-acting insulin either, but he asked me to prescribe Humalog KwikPen's for him as he said he was out which I did prescribe. I emphasized to the patient that DKA is a very dangerous disease and that he needs to be careful that he is checking his blood sugars several times every day regardless of any other life events. FINAL DIAGNOSIS: Diabetic ketoacidosis. DISCHARGE MEDICATIONS: 1. Lantus insulin as prescribed. 2. Humalog KwikPen as prescribed. CONDITION ON DISCHARGE: Improved. DISPOSITION ON DISCHARGE: Discharged home. [id number]/[facility] #: [id number]
== END 2018-11-04 11:43 | disposition home or self-care (01) | DRG 639 ==
LOC: ED 09:35 → ICU 11:05 → MED 11-03 08:57
PROVIDERS: ADMIT Internal Medicine; ATTEND Internal Medicine
DX: E10.10 Type 1 diabetes mellitus with ketoacidosis without coma (principal); F17.200 Nicotine dependence, unspecified, uncomplicated; J06.9 Acute upper respiratory infection, unspecified; Z79.4 Long term (current) use of insulin; Z72.89 Other problems related to lifestyle
CPT/HCPCS: 36415; 71046; 80048; 80051; 80053; 81003; 81015; 82550; 82803; 83036; 83605; 83690; 83735; 84100; 84484; 85025; 85379; 86140; 86308; 87040; 87641; 87651; 93005; 99285; 99406; A9270-GY; J1650; J1815; J2270; J2405; J3475